=== PATIENT | female | born 1970 | race Two or more races ===

== ENCOUNTER → 2018-04-03 | Outpatient (CLI) | payer OTHER ==
--- NOTE | 2018-04-03 10:00 | RADIOLOGY IMAGING REPORT ---
FACILITY: [facility] - [place] PATIENT NAME: Cassie Nunez : 1970 MR: [id number] V: [id number] EXAM DATE: ORDERING PHYSICIAN: TRISH VOSS TECHNOLOGIST: Location: [facility] Patient: Cassie Nunez : 1970 Visit/Account:[id number] Date of Sevice: 04/03/2018 Cervical spine, four views, and thoracic spine, three views. HISTORY: Left-sided shoulder discomfort. COMPARISON: None. The cervical lordotic curve is mildly reversed. Small endplate osteophytes and mild loss of disc hei ght are present at C5-6. Small marginal osteophytes and mild joint space narrowing are present along the anterior aspect of the dens. Cervical alignment is otherwise unremarkable. Other cervical disc s are normal in height. No fractures are identified. No prevertebral soft tissue swelling. The bony s jairo canal diameter is normal. The posterior elements are unremarkable. Minimal wedging is present in several lower thoracic vertebral bodies, probably developmental. Small marginal osteophytes without loss of disc height are present at multiple levels in the mid and lower thoracic spine and upper lumbar spine. The thoracic posterior elements are partially obscured by th e ribs. No acute fractures. IMPRESSION: Mild degenerative disc disease at C5-6. Loss of cervical lordosis suggesting muscle spasm. Mild multilevel thoracic degenerative disc disease. Report Dictated By: Daniel Sumner MD at 04/03/2018 9:53 AM Report E-Signed By: Daniel Sumner MD at 04/03/2018 9:56 AM WSN:[email or web address]
--- NOTE | 2018-04-03 10:00 | RADIOLOGY IMAGING REPORT ---
[place] [facility] [place] NAME: Cassie Nunez : 1970 MR: [id number] V: [id number] EXAM DATE: ORDERING PHYSICIAN: TRISH VOSS TECHNOLOGIST: Location: [facility] - [place] Patient: Cassie Nunez : 1970 Visit/Account:[id number] Date of Sevice: 04/03/2018 Cervical spine, four views, and thoracic spine, three views. HISTORY: Left-sided shoulder discomfort. COMPARISON: None. The cervical lordotic curve is mildly reversed. Small endplate osteophytes and mild loss of disc hei ght are present at C5-6. Small marginal osteophytes and mild joint space narrowing are present along the anterior aspect of the dens. Cervical alignment is otherwise unremarkable. Other cervical disc s are normal in height. No fractures are identified. No prevertebral soft tissue swelling. The bony s jairo canal diameter is normal. The posterior elements are unremarkable. Minimal wedging is present in several lower thoracic vertebral bodies, probably developmental. Small marginal osteophytes without loss of disc height are present at multiple levels in the mid and lower thoracic spine and upper lumbar spine. The thoracic posterior elements are partially obscured by th e ribs. No acute fractures. IMPRESSION: Mild degenerative disc disease at C5-6. Loss of cervical lordosis suggesting muscle spasm. Mild multilevel thoracic degenerative disc disease. Report Dictated By: Daniel Sumner MD at 04/03/2018 9:53 AM Report E-Signed By: Daniel Sumner MD at 04/03/2018 9:56 AM WSN:[email or web address]
== END ==
LOC: RAD 08:38
PROVIDERS: ATTEND Family Medicine
DX: M25.512 Pain in left shoulder (principal); M50.10 Cervical disc disorder with radiculopathy, unspecified cervical region
CPT/HCPCS: 72040; 72070